=== PATIENT | male | born 1975 | race Caucasian/White ===

== ENCOUNTER 2018-05-06 12:10 | Emergency (ER) | payer MEDICARE, MEDICAID ==
[~2018-05-06] VITALS: Ht 170.2 cm; Wt 60.9 kg
[~2018-05-06 12:10] MED LIST: HYDR28CR14 TOP
[2018-05-06] MEDS ORDERED: GENT5DRO4 EACHEYE (14:37)
[2018-05-06 14:53] VITALS: BP 125/55
== END 2018-05-06 14:54 | disposition home or self-care (01) ==
LOC: ER 12:11
DX: B30.9 Viral conjunctivitis, unspecified (principal); F17.200 Nicotine dependence, unspecified, uncomplicated; Z79.899 Other long term (current) drug therapy
CPT/HCPCS: 99283